=== PATIENT | female | born 1990 | race Caucasian/White ===

== ENCOUNTER 2017-09-12 14:20 | Emergency (ER) | payer BC, MEDICAID ==
[2017-09-12 14:40] VITALS: BP 118/81
--- NOTE | 2017-09-12 14:46 | EDM.PDOC ---
ED HPI GENERAL MEDICAL PROBLEM - General Chief Complaint: Skin Complaint Stated Complaint: RED BLANCHE ON ABD POSSIBLE BITE OR BURN Time Seen by Provider: 09/12/17 14:26 Source of Information: Reports: Patient History Limitations: Reports: No Limitations - History of Present Illness INITIAL COMMENTS - FREE TEXT/NARRATIVE: This is a 27-year-old female. She awoke this morning and noted that she's got this red spot on the abdomen in the right lower area just below her umbilicus. It was somewhat painful and red and she put a marker around that red spot and the redness has gone beyond that marker now she comes to the ER for evaluation. She says she doesn't know if the bite orifice just a scratch. She didn't notice it last night and just noticed it this morning because it began to hurt. She's had no fever no chills she denies any other acute symptoms. - Related Data Allergies Allergy/AdvReac Type Severity Reaction Status Date / Time No Known Allergies Allergy Verified 09/12/17 14:40 Home Meds: Home Meds Cephalexin [Keflex] 500 mg PO Q8H #21 cap 09/12/17 [Rx] Past Medical History Gastrointestinal History: Reports: GI Bleed Psychiatric History: Reports: Anxiety - Infectious Disease History Infectious Disease History: Reports: Chicken Pox - Past Surgical History Female Surgical History: Reports: Section Social & Family History - Family History Family Medical History: Noncontributory - Tobacco Use Smoking Status *Q: Never Smoker - Caffeine Use Caffeine Use: Reports: Coffee, Soda - Alcohol Use Days Per Week of Alcohol Use: 0 - Recreational Drug Use Recreational Drug Use: No ED ROS GENERAL - Review of Systems Review Of Systems: See Below Constitutional: Denies: Fever, Chills HEENT: Reports: No Symptoms Respiratory: Reports: No Symptoms Cardiovascular: Reports: No Symptoms Endocrine: Reports: No Symptoms GI/Abdominal: Reports: Other (As per history of present illness) : Reports: No Symptoms Musculoskeletal: Reports: No Symptoms Skin: Reports: Other (As per history of present illness) Neurological: Reports: No Symptoms Psychiatric: Reports: No Symptoms Hematologic/Lymphatic: Reports: No Symptoms ED EXAM, SKIN/RASH Exam: See Below Exam Limited By: No Limitations General Appearance: Alert, WD/WN, No Apparent Distress Eye Exam: Bilateral Eye: Normal Inspection Ears: Normal External Exam Nose: Normal Inspection Throat/Mouth: Normal Inspection, Normal Lips, Normal Voice, No Airway Compromise Head: Normocephalic Neck: Supple Respiratory/Chest: No Respiratory Distress GI/Abdominal: Soft, Other (In the right lower abdomen just below the umbilicus to the right side there is a small inflammation of the skin may be a small abrasion or possibly an ingrown hair that has some cellulitis now it's approximately 2 cm in size and it did grow out side the black line that she put , there is mild induration and there is tenderness on palpation but there does not appear to be any foreign body in that infected region.). No: Guarding, Rigid, Rebound Back Exam: Full Range of Motion Extremities: Normal Inspection, Normal Range of Motion Neurological: Alert, Oriented Psychiatric: Normal Affect, Normal Mood Skin: Other (As above under the abdomen) Associated features: Warmth, Tenderness, Induration, Inflammation. No: Weeping Course - Vital Signs Last Recorded V/S: Last Vital Signs Temp 97 F 09/12/17 14:31 Pulse 100 09/12/17 14:31 Resp 18 09/12/17 14:31 BP 118/81 09/12/17 14:31 Pulse Ox 100 09/12/17 14:31 - Re-Assessments/Exams Free Text/Narrative Re-Assessment/Exam: 09/12/17 14:44 I indicated to the patient that this was an infection that we needed to treat and that I cannot tell whether it's an insect bite versus just an abrasion that might have caused the infection to start. Departure - Departure Time of Disposition: 14:44 Disposition: Home, Self-Care 01 Condition: Good Clinical Impression: Cellulitis of skin, Cellulitis of right abdominal wall - Discharge Information Prescriptions: Cephalexin [Keflex] 500 mg PO Q8H #21 cap Referrals: Katelyn Mccarthy, CAR SALES ASSOCIATE [Primary Care Provider] - Additional Instructions: Keep the area clean and dry, when you get in the shower wash that area very thoroughly, take the antibiotics faithfully until they're finished and realized that the antibiotics will start working in about 24 hours so it might get a little more red and sore before he starts getting better, if you develop a fever greater than 101 follow up with your family doctor or return to the ER, follow up with the family doctor later this week just for recheck
== END 2017-09-12 15:02 | disposition home or self-care (01) ==
LOC: JD.ED 14:20
DX: L03.311 Cellulitis of abdominal wall (principal)
CPT/HCPCS: 99283

== ENCOUNTER 2017-10-11 15:00 | Emergency (ER) | payer MEDICAID ==
[2017-10-11 15:11] VITALS: BP 108/69
[2017-10-11] MEDS ORDERED: Lidocaine 1% 50 ML MDV INJECT ONE (15:20)
[2017-10-11] MEDS ORDERED: Diphtheria,Pertussis(Acell),Tetanus Vaccine 0.5 ML SDV IM ONE (15:42)
--- NOTE | 2017-10-11 15:46 | EDM.PDOC ---
ED HPI GENERAL MEDICAL PROBLEM - General Chief Complaint: Upper Extremity Injury/Pain Stated Complaint: LEFT PINKY LAC Time Seen by Provider: 10/11/17 15:20 Source of Information: Reports: Patient History Limitations: Reports: No Limitations - History of Present Illness INITIAL COMMENTS - FREE TEXT/NARRATIVE: Patient is a 27-year-old female who presents ED, the laceration to the left fifth finger middle phalanx. She was cleaning a powder blender and accidentally cut it on the sharp blades. Bleeding controlled. Minimal pain present. No sensory/ motor deficits. Tetanus status is not up-to-date. She offers no additional plans. Left Hand Pain Score (Numeric/FACES): 6 - Related Data Allergies Allergy/AdvReac Type Severity Reaction Status Date / Time No Known Allergies Allergy Verified 10/11/17 15:06 Home Meds: Home Meds buPROPion [buPROPion XL] 300 mg PO DAILY 10/11/17 [History] metFORMIN [Glucophage] 500 mg PO DAILY 10/11/17 [History] Past Medical History - Past Health History Medical/Surgical History: Denies Medical/Surgical History Gastrointestinal History: Reports: GI Bleed Psychiatric History: Reports: Anxiety, Depression - Infectious Disease History Infectious Disease History: Reports: Chicken Pox - Past Surgical History Female Surgical History: Reports: Section Social & Family History - Family History Family Medical History: Noncontributory - Tobacco Use Smoking Status *Q: Never Smoker Second Hand Smoke Exposure: No - Caffeine Use Caffeine Use: Reports: Coffee, Soda - Alcohol Use Days Per Week of Alcohol Use: 0 - Recreational Drug Use Recreational Drug Use: No Review of Systems - Review of Systems Review Of Systems: ROS reveals no pertinent complaints other than HPI. ED EXAM, GENERAL - Physical Exam Exam: See Below Exam Limited By: No Limitations General Appearance: Alert, WD/WN, No Apparent Distress Eye Exam: Bilateral Eye: PERRL Ears: Hearing Grossly Normal Nose: Normal Inspection Throat/Mouth: Normal Voice, No Airway Compromise Head: Atraumatic, Normocephalic Neck: Normal Inspection, Supple Respiratory/Chest: No Respiratory Distress, Lungs Clear, Normal Breath Sounds, No Accessory Muscle Use, Chest Non-Tender Cardiovascular: Normal Peripheral Pulses, Regular Rate, Rhythm Peripheral Pulses: 3+: Radial (R) Extremities: Other (1.5 cm laceration to the left fifth finger proximal phalanx with no tendon involvement. He has no sensory/motor deficits present. When control.) Neurological: Alert, Oriented, Normal Cognition, No Motor/Sensory Deficits Psychiatric: Normal Affect, Normal Mood Skin Exam: Warm, Dry, Normal Color ED TRAUMA EXTREMITY PROCEDURES - Laceration/Wound Repair Left Distal Finger Lac/Wound Length In cm: 1.5 Appearance: Subcutaneous, Clean Distal NVT: Neuro & Vascular Intact, No Tendon Injury Anesthetic Type: Local Local Anesthesia - Lidocaine (Xylocaine): 1% Plain (7cc) Skin Prep: Chlorhexidine (Hibiciens), Other (sterile water) Exploration/Debridement/Repair: No Foreign Material Found Closed With: Sutures Suture Size: 4-0 # of Sutures: 4 Suture Type: Interrupted, Simple, Other (Vicryl) Drain Placement: No Sterile Dressing Applied: Nurse Tetanus Status Addressed: Yes Complications: No Course - Vital Signs Last Recorded V/S: Last Vital Signs Temp 96.4 F 10/11/17 15:08 Pulse 104 H 10/11/17 15:08 Resp 15 10/11/17 15:08 BP 108/69 10/11/17 15:08 Pulse Ox 99 10/11/17 15:08 - Orders/Labs/Meds Orders: Active Orders 24 hr Category Date Time Status Vaccines to be Administered [RC] PER UNIT ROUTINE Care 10/11/17 15:42 Active Meds: Medications Discontinued Medications Generic Name Dose Route Start Last Admin Trade Name Freq PRN Reason Stop Dose Admin Diphtheria/Tetanus/Acell Pertussis 0.5 ml 10/11/17 15:42 10/11/17 15:59 Adacel IM 10/11/17 15:43 0.5 ml .ONCE ONE Administration Lidocaine HCl 30 ml 10/11/17 15:20 10/11/17 15:23 Xylocaine 1% INJECT 10/11/17 15:21 30 ml ONETIME ONE Administration - Re-Assessments/Exams Free Text/Narrative Re-Assessment/Exam: Laceration closed by Tanya Hollis PA-C. There were no complications. Discharge instructions as documented. Departure - Departure Time of Disposition: 15:45 Disposition: Home, Self-Care 01 Condition: Good Clinical Impression: Finger laceration Qualifiers: Encounter type: initial encounter Finger: little finger Damage to nail status: without damage Foreign body presence: without foreign body Laterality: left Qualified Code(s): S61.217A - Laceration without foreign body of left little finger without damage to nail, initial encounter - Discharge Information Instructions: Laceration Care, Adult, [id number] Referrals: Katelyn Mccarthy, RIDES SUPERVISOR [Primary Care Provider] - Forms: ED Department Discharge Additional Instructions: Cleanse site twice daily with soap and water, pat dry, reapply triple antibiotic ointment, and dressing. Keep area clean and dry. Do not soak wound. Sutures come out in 7-10 days. Follow-up with a provider at [facility] in [place] to do so. Return to ED if you develop any new or worsening symptoms. - My Orders Last 24 Hours: My Active Orders 10/11/17 15:42 Vaccines to be Administered [RC] PER UNIT ROUTINE - Assessment/Plan Last 24 Hours: My Active Orders 10/11/17 15:42 Vaccines to be Administered [RC] PER UNIT ROUTINE
== END 2017-10-11 16:40 | disposition home or self-care (01) ==
LOC: JD.ED 15:00
DX: S61.217A Laceration without foreign body of left little finger without damage to nail, initial encounter (principal); F32.9 Major depressive disorder, single episode, unspecified; Z23 Encounter for immunization; Z79.84 Long term (current) use of oral hypoglycemic drugs; W29.0XXA Contact with powered kitchen appliance, initial encounter
CPT/HCPCS: 12001; 90471; 90715; 99282-25; 99283-25

== ENCOUNTER 2017-10-24 11:54 | Emergency (ER) | payer MEDICAID ==
[2017-10-24 12:02] VITALS: BP 116/79
--- NOTE | 2017-10-24 13:20 | EDM.PDOC ---
ED HPI GENERAL MEDICAL PROBLEM - General Chief Complaint: Abdominal Pain Stated Complaint: WORMS IN STOOLS Time Seen by Provider: 10/24/17 12:03 Source of Information: Reports: Patient - History of Present Illness INITIAL COMMENTS - FREE TEXT/NARRATIVE: Patient is concerned about "worms" States their little puppy has worms, has seen them and what looks like eggs in the dog poop. Yesterday she saw what looked very much like a somewhat long worm in the toilet after defecating. occassional mild abd discomfort, nothing severe, no pain at present, has had somewhat poor appetite, abnormal stools at times for the past week or so. Middle Abdomen Pain Score (Numeric/FACES): 7 - Related Data Allergies Allergy/AdvReac Type Severity Reaction Status Date / Time No Known Allergies Allergy Verified 10/11/17 15:06 Home Meds: Home Meds buPROPion [buPROPion XL] 300 mg PO DAILY 10/11/17 [History] metFORMIN [Glucophage] 500 mg PO DAILY 10/11/17 [History] Past Medical History - Past Health History Medical/Surgical History: Denies Medical/Surgical History Gastrointestinal History: Reports: GI Bleed Psychiatric History: Reports: Anxiety, Depression - Infectious Disease History Infectious Disease History: Reports: Chicken Pox - Past Surgical History Female Surgical History: Reports: Section Social & Family History - Family History Family Medical History: Noncontributory - Tobacco Use Smoking Status *Q: Never Smoker Second Hand Smoke Exposure: No - Caffeine Use Caffeine Use: Reports: Coffee, Tea - Alcohol Use Days Per Week of Alcohol Use: 0 - Recreational Drug Use Recreational Drug Use: No ED ROS GENERAL - Review of Systems Review Of Systems: See Below Constitutional: Denies: Fever, Chills HEENT: Denies: Throat Pain Respiratory: Denies: Shortness of Breath, Wheezing, Pleuritic Chest Pain Cardiovascular: Denies: Chest Pain GI/Abdominal: Reports: Abdominal Pain (occasional) ED EXAM, GI/ABD - Physical Exam Exam: See Below General Appearance: Alert, No Apparent Distress Throat/Mouth: Normal Inspection Neck: Supple Respiratory/Chest: No Respiratory Distress, Lungs Clear, Normal Breath Sounds Cardiovascular: Regular Rate, Rhythm GI/Abdominal Exam: Soft. No: Guarding Extremities: Normal Inspection, Normal Range of Motion Neurological: Alert Skin Exam: Warm, Dry, Normal Color Course - Vital Signs Last Recorded V/S: Last Vital Signs Temp 96.9 F 10/24/17 12:00 Pulse 99 10/24/17 12:00 Resp 20 10/24/17 12:00 BP 116/79 10/24/17 12:00 Pulse Ox 100 10/24/17 12:00 Departure - Departure Time of Disposition: 13:16 Disposition: Home, Self-Care 01 Condition: Fair Clinical Impression: Tapeworm infection - Discharge Information Instructions: Tapeworm Infection Referrals: Katelyn Mccarthy PORTFOLIO ASSISTANT [Primary Care Provider] - Forms: ED Department Discharge Additional Instructions: abendazole 400 mg now and than repeat that in 2 weeks. Follow up clinic as needed, get dogs treated as planned.
== END 2017-10-24 13:28 | disposition home or self-care (01) ==
LOC: JD.ED 11:54
DX: B71.9 Cestode infection, unspecified (principal); F32.9 Major depressive disorder, single episode, unspecified; Z79.84 Long term (current) use of oral hypoglycemic drugs; Z79.899 Other long term (current) drug therapy
CPT/HCPCS: 99283

== ENCOUNTER 2018-04-08 18:08 | Emergency (ER) | payer MEDICAID ==
[2018-04-08 18:23] VITALS: BP 130/83
[2018-04-08] MEDS ORDERED: Magnesium Citrate Solution 296 ML Bottle PO ONE (20:00)
[2018-04-08] MEDS ORDERED: Ondansetron 4 MG Tab.DIS PO ONE (20:13)
--- NOTE | 2018-04-08 20:15 | EDM.PDOC ---
ED HPI GENERAL MEDICAL PROBLEM - General Chief Complaint: Abdominal Pain Stated Complaint: 8 WEEKS AND BLEEDING Time Seen by Provider: 04/08/18 18:47 Source of Information: Reports: Patient History Limitations: Reports: No Limitations - History of Present Illness INITIAL COMMENTS - FREE TEXT/NARRATIVE: 27 y/o F who is currently 8 weeks presents with constipation and bleeding from the rectum x 1 week. However, upon further questioning she did say she was able to have small and hard stools come out with fleet enema yesterday. She has a chronic history of GI issues and has had 3 past colonoscopies (she's unsure of what her previous diagnosis was, but states 3 different doctors told her different things such as IBS, Diverticulitis, Hemorrhoids). She states the last time she bled like this was over 1 year ago. Also, because she is she was worried this could possibly be a miscarriage, she has had one in the past and states she had similar symptoms. She has been eating fruits and veggies as well as taking OTC medications for constipation including Miralax, Colace, Fleet enemas and suppositories. She also has been pushing hard "to the point of sweating and crying" and trying to manually disimpact- she was able to get some "clumps" out as well as some " brown liquid". She is able to pass gas. She also complains of some chills, nausea and decreased appetite. She vomited 4 days ago. Currently no fever, vomiting or diarrhea. No other GI/ complaints. 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: Reports: Other (See Below) Other ASSISTANT ART DIRECTOR History: miscarriage Psychiatric History: Reports: Anxiety, Depression - Infectious Disease History Infectious Disease History: Reports: Chicken Pox - Past Surgical History GI Surgical History: Reports: Colonoscopy Female Surgical History: Reports: Section, Other (See Below) Other Female Surgeries/Procedures: cyst left ovary Social & Family History - Family History Family Medical History: Noncontributory - Tobacco Use Smoking Status *Q: Never Smoker - Caffeine Use Caffeine Use: Reports: Soda - Recreational Drug Use Recreational Drug Use: No ED ROS GENERAL - Review of Systems Review Of Systems: See Below Constitutional: Reports: Chills, Decreased Appetite (feels "full"). Denies: Fever HEENT: Reports: No Symptoms Respiratory: Reports: No Symptoms Cardiovascular: Reports: No Symptoms Endocrine: Reports: No Symptoms GI/Abdominal: Reports: Abdominal Pain, Bloody Stool, Constipation, Flatus, Nausea. Denies: Diarrhea, Vomiting : Reports: No Symptoms Musculoskeletal: Reports: No Symptoms Skin: Reports: No Symptoms Neurological: Reports: No Symptoms Psychiatric: Reports: Anxiety ED EXAM, GI/ABD - Physical Exam Exam: See Below Exam Limited By: No Limitations General Appearance: Alert, WD/WN, Anxious Eyes: Bilateral: Normal Appearance, EOMI Ears: Normal External Exam, Hearing Grossly Normal Throat/Mouth: Normal Inspection, Normal Lips, Normal Teeth, Normal Gums, Normal Oropharynx, Normal Voice, No Airway Compromise Head: Atraumatic, Normocephalic Neck: Normal Inspection, Supple, Non-Tender, Full Range of Motion Respiratory/Chest: No Respiratory Distress, Lungs Clear, Normal Breath Sounds, No Accessory Muscle Use, Chest Non-Tender Cardiovascular: Normal Peripheral Pulses, Regular Rate, Rhythm, No Edema, No Gallop, No JVD, No Murmur, No Rub GI/Abdominal Exam: Soft, Non-Tender, No Organomegaly, No Distention, No Mass, Pelvis Stable, Abnormal Bowel Sounds (hypoactive) (Female) Exam: Normal External Exam. No: Vaginal Bleeding Rectal (Female) Exam: Normal Rectal Tone, Heme + Stool, Tenderness, Other (no active bleeding at time of exam). No: Hemorrhoids Back Exam: Normal Inspection, Full Range of Motion, NT Extremities: Normal Inspection, Normal Range of Motion, Non-Tender, Normal Capillary Refill, No Pedal Edema Psychiatric: Normal Affect, Anxious Skin Exam: Warm, Dry, Intact, Normal Color, No Rash Course - Vital Signs Last Recorded V/S: Last Vital Signs Temp 97.8 F 04/08/18 18:22 Pulse 110 H 04/08/18 18:22 Resp 20 04/08/18 18:22 BP 130/83 04/08/18 18:22 Pulse Ox 100 04/08/18 18:22 - Orders/Labs/Meds Orders: Active Orders 24 hr Category Date Time Status Hemoccult [Fecal Occult Blood Collection] [RC] Care 04/08/18 20:03 Active ASDIRECTED HCG QUALITATIVE,URINE [URCHEM] Stat Lab 04/08/18 19:21 Ordered Labs: Laboratory Tests 04/08/18 Range/Units 19:21 Urine HCG, Qual Positive (NEGATIVE) Meds: Medications Discontinued Medications Generic Name Dose Route Start Last Admin Trade Name Oma PRN Reason Stop Dose Admin Magnesium Citrate 200 ml 04/08/18 20:00 04/08/18 20:12 Citrate Of Magnesia PO 04/08/18 20:01 200 ml ONETIME ONE Administration Ondansetron HCl 4 mg 04/08/18 20:13 04/08/18 20:21 Zofran Odt PO 04/08/18 20:14 4 mg ONETIME ONE Administration - Radiology Interpretation Free Text/Narrative:: Hemoccult postive Offered Abdominal Xray to rule out obstruction, however because of her it is offered with caution. She would like to wait at this time and follow up with her OBGYN Dr. Bender before deciding to have imaging done during . Departure - Departure Time of Disposition: 20:12 Disposition: Home, Self-Care 01 Condition: Fair Clinical Impression: test positive, Constipation during in first trimester - Discharge Information *PRESCRIPTION DRUG MONITORING PROGRAM REVIEWED*: Not Applicable *COPY OF PRESCRIPTION DRUG MONITORING REPORT IN PATIENT JAYLIN: Not Applicable Instructions: Constipation, Adult, [id number], Nausea and Vomiting, Adult, [id number], Abdominal Pain, Adult, [id number] Referrals: Rachel Bender MD [Primary Care Provider] - Forms: ED Department Discharge Additional Instructions: You were seen in the ED today for constipation and bleeding during 1st trimester. Your HCG test confirmed you are still . There was no active bleeding while here, but your stool did test positive for blood, most likely due to the trauma of constipation/pushing. There was no evidence of vaginal bleeding here. You were given Magnesium Citrate. Take 1/2 bottle tonight and 1/2 bottle in the AM. Also recommend high fiber diet of fruits, veggies, prune juice. Continue over the counter stool softeners and Miralax. Drink plenty of water. Follow up with your OBGYN Dr. Bender at your appointment on the for further evaluation and treatment. Please return to ED if worsening of symptoms or cramping/vaginal bleeding. - My Orders Last 24 Hours: My Active Orders 04/08/18 19:21 HCG QUALITATIVE,URINE [URCHEM] Stat 04/08/18 20:03 Hemoccult [Fecal Occult Blood Collection] [RC] ASDIRECTED - Assessment/Plan Last 24 Hours: My Active Orders 04/08/18 19:21 HCG QUALITATIVE,URINE [URCHEM] Stat 04/08/18 20:03 Hemoccult [Fecal Occult Blood Collection] [RC] ASDIRECTED
== END 2018-04-08 20:45 | disposition home or self-care (01) ==
LOC: JD.ED 18:08
DX: O99.611 Diseases of the digestive system complicating pregnancy, first trimester (principal); K59.00 Constipation, unspecified; Z3A.08 8 weeks gestation of pregnancy
CPT/HCPCS: 81025; 82270; 99283; A9270

== ENCOUNTER 2018-11-07 05:20 | Inpatient (IN) | payer MEDICAID ==
[~2018-11-07 05:20] MED LIST: Citric Acid/Sodium Citrate Solution 30 ML Cup PO ONE; Metoclopramide 10 MG/2 ML SDV IVPUSH ONE; Sodium Chloride 0.9% 10 ML Syringe FLUSH PRN
[2018-11-07] MEDS ORDERED: Lactated Ringers 2,000 ML ONE (06:12)
[2018-11-07] MEDS ORDERED: Ondansetron 4 MG/2 ML SDV ONE (06:12)
[2018-11-07] MEDS ORDERED: Ketorolac 30 MG/ML SDV ONE (06:12)
[2018-11-07] MEDS ORDERED: Oxytocin 10 Units/1 ML SDV ONE (06:12)
[2018-11-07] MEDS ORDERED: ceFAZolin 1 GM Vial ONE ×2 (06:12→06:13)
[2018-11-07] MEDS ORDERED: Morphine PF 1 MG/ML Amp ONE (06:12)
[2018-11-07] MEDS: Lactated Ringers 1,000 ML IV SCH ×2 (06:15→07:19)
--- NOTE | 2018-11-07 06:37 | PCM.PREANE ---
Preanesthetic Assessment - Procedure Proposed Procedure: repeat c section - Anesthesia/Transfusion/Family Hx Anesthesia History: Prior Anesthesia Without Reaction Family History of Anesthesia Reaction: No Transfusion History: No Prior Transfusion(s) - Review of Systems General: No Symptoms Pulmonary: No Symptoms, Other (sinus infection) Cardiovascular: No Symptoms Gastrointestinal: No Symptoms, Nausea (today) Neurological: No Symptoms Other: Reports: Diabetes (pre), Depression (history), Anxiety - Physical Assessment NPO Status Date: 11/06/18 NPO Status Time: 23:19 O2 Sat by Pulse Oximetry: 98 Respiratory Rate: 18 Vital Signs: Last Vital Signs Temp 97 F 11/07/18 01:31 Pulse 117 H 11/07/18 01:31 Resp 18 11/07/18 01:31 BP 106/77 11/07/18 01:31 Pulse Ox 98 11/07/18 01:31 Height: 5 ft 8 in Weight: 122.561 kg ASA Class: 2 Mental Status: Alert & Oriented x3 Airway Class: Mallampati = 1 Dentition: Reports: Normal Dentition Thyro-Mental Finger Breadths: 3 Mouth Opening Finger Breadths: 3 ROM/Head Extension: Full Lungs: Clear to Auscultation, Normal Respiratory Effort Cardiovascular: Regular Rate, Regular Rhythm - Lab Values: Laboratory Last Values WBC 9.72 K/mm3 (3.98-10.04) 11/07/18 06:20 RBC 4.27 M/mm3 (3.98-5.22) 11/07/18 06:20 Hgb 12.9 gm/L (11.2-15.7) 11/07/18 06:20 Hct 38.0 % (34.1-44.9) 11/07/18 06:20 MCV 89.0 fl (79.4-94.8) 11/07/18 06:20 MCH 30.2 pg (25.6-32.2) 11/07/18 06:20 MCHC 33.9 g/dl (32.2-35.5) 11/07/18 06:20 RDW Std Deviation 43.0 fL (36.4-46.3) 11/07/18 06:20 Plt Count 145 K/mm3 (182-369) L 11/07/18 06:20 MPV 9.9 fl (9.4-12.3) 11/07/18 06:20 Neut % (Auto) 76.2 % (34.0-71.1) H 11/07/18 06:20 Lymph % (Auto) 16.5 % (19.3-51.7) L 11/07/18 06:20 [place] % (Auto) 5.8 % (4.7-12.5) 11/07/18 06:20 Eos % (Auto) 1.2 (0.7-5.8) 11/07/18 06:20 Baso % (Auto) 0.1 % (0.1-1.2) 11/07/18 06:20 Neut # (Auto) 7.41 K/mm3 (1.56-6.13) H 11/07/18 06:20 Lymph # (Auto) 1.60 K/mm3 (1.18-3.74) 11/07/18 06:20 [place] # (Auto) 0.56 K/mm3 (0.24-0.36) H 11/07/18 06:20 Eos # (Auto) 0.12 K/mm3 (0.04-0.36) 11/07/18 06:20 Baso # (Auto) 0.01 K/mm3 (0.01-0.08) 11/07/18 06:20 - Allergies Allergies/Adverse Reactions: Allergies Allergy/AdvReac Type Severity Reaction Status Date / Time adhesive tape Allergy Rash Verified 11/07/18 05:35 - Blood Blood Available: No - Acknowledgements Anesthesia Type Planned: Spinal Pt an Appropriate Candidate for the Planned Anesthesia: Yes Alternatives and Risks of Anesthesia Discussed w Pt/Guardian: Yes Pt/Guardian Understands and Agrees with Anesthesia Plan: Yes PreAnesthesia Questionnaire - Past Health History Medical/Surgical History: Denies Medical/Surgical History Cardiovascular History: Reports: Other (See Below) Other Cardiovascular History: tachycardic when sick Respiratory History: Reports: None Gastrointestinal History: Reports: Diverticulosis, GERD (with preg), GI Bleed ( Gaby-Carter tear) FRONT OFFICE MEDICAL ASSISTANT History: Reports: , Spontaneous (x 1), Other (See Below ) (Left ovarian cyst) Other OB/BYN History: miscarriage Musculoskeletal History: Reports: Other (See Below) (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) Psychiatric History: Reports: Anxiety, Depression, Other (See Below) (Irritable bowel syndrome) Endocrine/Metabolic History: Reports: Obesity/BMI 30+ - Infectious Disease History Infectious Disease History: Reports: Chicken Pox - Past Surgical History HEENT Surgical History: Reports: Oral Surgery (wisdom teeth extraction) GI Surgical History: Reports: Colonoscopy (x 3) Female Surgical History: Reports: Section (x 1) - History Comment History Comment: tylenol prn, vits - SUBSTANCE USE Smoking Status *Q: Never Smoker Tobacco Use Within Last Twelve Months: No Second Hand Smoke Exposure: No Days Per Week of Alcohol Use: 0 Recreational Drug Use History: No - HOME MEDS Home Medications: Home Meds Ondansetron HCl [Ondansetron] 4 mg PO Q6H PRN 09/16/18 [History] - CURRENT (IN HOUSE) MEDS Current Meds: Current Medications Lactated Ringer's (Ringers, Lactated) 1,000 mls @ 125 mls/hr IV ASDIRECTED SERGIO Sodium Chloride (Saline Flush) 10 ml FLUSH ASDIRECTED PRN PRN Reason: Keep Vein Open Discontinued Medications Cefazolin Sodium (Ancef) Confirm Administered Dose 2 gm .ROUTE .STK-MED ONE Stop: 11/07/18 06:13 Cefazolin Sodium (Ancef) Confirm Administered Dose 1 gm .ROUTE .STK-MED ONE Stop: 11/07/18 06:14 Citric Acid/Sodium Citrate (Bicitra Solution) 30 ml PO ONETIME ONE Stop: 11/07/18 01:31 Cefazolin Sodium/Dextrose 3 gm (/ Premix) 75 mls @ 100 mls/hr IV ONETIME ONE Stop: 11/07/18 01:59 Lactated Ringer's (Ringers, Lactated) Confirm Administered Dose 2,000 mls @ as directed .ROUTE .STK-MED ONE Stop: 11/07/18 06:13 Ketorolac Tromethamine (Toradol) Confirm Administered Dose 30 mg .ROUTE .STK- MED ONE Stop: 11/07/18 06:13 Metoclopramide HCl (Reglan) 10 mg IVPUSH ONETIME ONE Stop: 11/07/18 01:31 Morphine Sulfate (Duramorph Pf) Confirm Administered Dose 1 mg .ROUTE .STK-MED ONE Stop: 11/07/18 06:13 Ondansetron HCl (Zofran) Confirm Administered Dose 4 mg .ROUTE .STK-MED ONE Stop: 11/07/18 06:13 Oxytocin (Pitocin) Confirm Administered Dose 10 unit .ROUTE .STK-MED ONE Stop: 11/07/18 06:13
[2018-11-07] MEDS ORDERED: Bupivacaine 0.5% 30 ML SDV ONE (07:04)
[2018-11-07] MEDS ORDERED: ePHEDrine/Normal Saline 25 MG/5 ML Syringe ONE (08:07)
[2018-11-07] MEDS ORDERED: diphenhydrAMINE 50 MG/ML SDV IVPUSH PRN ×2 (08:10→10:12)
[2018-11-07] MEDS ORDERED: Ondansetron 4 MG/2 ML SDV IVPUSH PRN (08:10)
[2018-11-07] MEDS ORDERED: fentaNYL 100 MCG/2 ML SDV IVPUSH PRN (08:10)
[2018-11-07] MEDS ORDERED: Phenylephrine/Normal Saline 100 MCG/ML 10 ML Syringe ONE (08:19)
[2018-11-07] MEDS ORDERED: fentaNYL 100 MCG/2 ML SDV ONE (08:34)
--- NOTE | 2018-11-07 09:04 | PCM.POSTAN ---
POST ANESTHESIA ASSESSMENT - MENTAL STATUS Mental Status: Alert, Oriented - VITAL SIGNS Pulse Rate: 97 SaO2: 100 Resp Rate: 13 Blood Pressure: 122/83 Temperature: 97.5 F - RESPIRATORY Respiratory Status: Respiratory Rate WNL, Airway Patent, O2 Saturation Stable, Supplemental Oxygen - CARDIOVASCULAR CV Status: Pulse Rate WNL, Blood Pressure Stable - GASTROINTESTINAL GI Status: No Symptoms - PAIN Pain Score: 0 - POST OP HYDRATION Hydration Status: Adequate & Stable
--- NOTE | 2018-11-07 09:20 | PCM.OPNOTE ---
- General Post-Op/Procedure Note Date of Surgery/Procedure: 11/07/18 Operative Procedure(s): Repeat section Findings: Live female infant delivered in vertex presentation at 08 21. Nuchal cord 1 reduced prior to delivery. Apgars 8 and 9. weight 3410 g (7 pounds 8.3 ounces). Overall normal-appearing uterus, tubes and ovaries. Lower uterine segment with thin uterine wall approximately 3-4 mm thick by visual examination. Pre Op Diagnosis: History of section and desires repeat at 39 weeks Post-Op Diagnosis: Same Anesthesia Technique: Spinal Primary Surgeon: Remy Donnelly Anesthesia Provider: Eyal Mccallum Gold Leaf Printer: Cindi Cruz Reason Gold Leaf Printer Was Necessary: Patient safety and reduction of morbidity and mortality Role of Gold Leaf Printer: Retraction and knowledge of the procedure for safe procedure Pathology: None Fluid Replacement, Intraop: 3,200 (Including fluids given on the floor prior to procedure) Output, Urine Amount: 200 EBL in mLs: 600 Complications: None Condition: Good Free Text/Narrative:: Intake & Output 11/06/18 11/07/18 11/07/18 22:59 06:59 14:59 Intake Total 1000 Balance 1000 Duration of procedure: 36 minutes Procedure in Detail: The patient was seen in room #4 and the risks, benefits and complications were discussed with the patient. The patient desired to proceed with section and appropriate consents were reviewed. The patient was taken to operating room #1. A Time Out was held and the patient was identified using 2 identifiers and the procedure was confirmed. The patient was given spinal anesthesia and was placed in dorsal supine position with leftward tilt. She was given 3 g Ancef IV for antibiotic prophylaxis. The patient was prepped and draped in the usual sterile manner with the use of the Traxi panniculus retractor. The abdominal skin was tested and the spinal anesthesia was found to be adequate. The skin was injected with 0.5% marcaine for local anesthesia. A Pfannenstiel skin incision was made and carried down through the subcutaneous tissue to the fascia with the scapel. The fascia was nicked in the midline using a scalpel and the fascial incision was extended transversely with White scissors. The superior aspect of the fascia was grasped with Court clamps and tented upwards. The fascia was from the underlying rectus muscle bluntly. Attention was then turned to the inferior aspect of the fascia and was grasped using Court clamps and tented upwards. The underlying rectus muscle was dissected off bluntly. The peritoneum was identified and entered bluntly. The utero-vesical peritoneal reflection was identified and the peritoneum was incised with [place] scissors and transversely extended. The bladder blade was inserted and the lower uterine segment was identified. The lower uterine segment was noted to be somewhat thin measuring approximately 3-4 mm in thickness by visual inspection. A low transverse uterine incision was made sharply with a scalpel and extended laterally bluntly. The 's head was brought to the uterine incision, the bladder blade was removed and the was delivered atraumatically. On 11/07/2018 a live female was delivered in vertex position at 0821, wt of 3410 grams, 7 pounds and 8.3 ounces. There was a nuchal cord 1 that was reduced prior to delivery. APGARS were 8 & 9. The nose and mouth were suctioned with bulb suction, the cord was doubly clamped and cut and infant was transferred to the awaiting nurse. The placenta was removed intact and appeared normal with a three vessel cord. The uterus was exteriorized and the uterine cavity was cleaned using lap sponges. The hysterotomy was closed with a running locked suture of 0-Vicryl. During the initial hysterotomy repair there were 2 areas to the right of midline that had some tearing through the myometrium and were repaired using additional locked sutures of the 0 Vicryl suture. A second suture of 0-Vicryl was used to imbricate the hysterotomy in a horizontal fashion. The hysterotomy was had one area approximately 3 cm from the right apex of the hysterotomy that had some bleeding and a [id number] suture with 0 Vicryl was placed in this area and hemostasis was assured. There was another area of bleeding approximately 2 cm from previous figure of 8 suture that was bleeding and another nugoys-by-avxuy suture with 0 Vicryl was placed for hemostasis. The hysterotomy was hemostatic at this time. The uterus, tubes and ovaries appeared overall normal. The uterus was then returned into the abdominal cavity. The hysterotomy was noted to remain hemostatic inside the abdominal cavity. The fascia was noted to be hemostatic and the fascia was then reapproximated with running sutures of 0-Vicryl. The skin was reapproximated using 4-0 Monocryl and Prineo dressing was applied over the incision due to her history of adhesive allergy. Instrument, sponge, and needle counts were correct prior to the abdominal closure and at the conclusion of the case.
[2018-11-07] MEDS ORDERED: Acetaminophen/oxyCODONE 325-5 MG Tab PO PRN (10:12)
[2018-11-07] MEDS ORDERED: Lactated Ringers 1,000 ML IV SCH (10:12)
[2018-11-07] MEDS ORDERED: Oxytocin/Lactated Ringers 10 UNIT/1,000 ML BAG IV SCH (10:12)
[2018-11-07] MEDS ORDERED: Magnesium Hydroxide 400 MG/5 ML Susp 30 ML Cup PO PRN (10:12)
[2018-11-07] MEDS ORDERED: Naloxone 0.4 MG/ML SDV IVPUSH PRN (10:12)
[2018-11-07] MEDS ORDERED: ePHEDrine 50 MG/ML SDV IVPUSH PRN (10:12)
[2018-11-07] MEDS ORDERED: Ondansetron 4 MG/2 ML SDV IV PRN (10:12)
[2018-11-07] MEDS ORDERED: Lanolin 100% Cream 7 GM Tube TOP PRN (10:12)
[2018-11-07] MEDS ORDERED: Lactated Ringers 1,000 ML ONE (11:48)
[2018-11-07] MEDS: Ketorolac 30 MG/ML SDV IVPUSH SCH ×2 (14:39→20:21)
[2018-11-07] MEDS: Docusate Sodium 100 MG Cap PO SCH ×2 (14:42→20:21)
[2018-11-07] MEDS: Nystatin Topical Powder 15 GM Bottle TOP SCH (18:45)
[2018-11-08] MEDS: Docusate Sodium 100 MG Cap PO SCH ×3 (01:08→20:56)
[2018-11-08] MEDS: Nystatin Topical Powder 15 GM Bottle TOP SCH ×4 (01:12→22:09)
[2018-11-08] MEDS: Ketorolac 30 MG/ML SDV IVPUSH SCH (02:30)
[2018-11-08] MEDS: Acetaminophen/oxyCODONE 325-5 MG Tab PO PRN ×3 (02:51→16:58)
--- NOTE | 2018-11-08 08:35 | PCM48HPAN ---
Post Anesthesia Note - EVALUATION WITHIN 48HRS OF ANESTHETIC Vital Signs in Normal Range: Yes Patient Participated in Evaluation: Yes Respiratory Function Stable: Yes Airway Patent: Yes Cardiovascular Function Stable: Yes Hydration Status Stable: Yes Pain Control Satisfactory: Yes Nausea and Vomiting Control Satisfactory: Yes Mental Status Recovered: Yes
--- NOTE | 2018-11-08 08:40 | PCM.SN ---
- Free Text/Narrative Note: Post Operative Progress Note POD # 1 Subjective: Doing well overall. Ambulating without difficulty. Lochia minimal. Voiding without difficulty several times since removal of catheter this morning. Feels like she has to pass flatus but has not been able to at this time. Tolerating regular diet without nausea or vomiting. Pain controlled with oral medications. Breast-feeding with minimal difficulty. Objective: Vitals: Vital Signs - 24 hr 11/07/18 11/07/18 11/07/18 08:58 09:00 09:04 Temperature 36.4 C Temperature [ 36.4 C 36.4 C Temporal] Pulse, 97 Peripheral Pulse, 97 111 H Peripheral [ Pulse Oximetry] Respiratory 13 13 13 Rate Blood Pressure 122/83 Blood Pressure 122/82 122/73 [Upper Arm] O2 Sat by Pulse 100 100 100 Oximetry O2 Sat by Pulse Oximetry [ Nasal Cannula] 11/07/18 09:15 Temperature Temperature [ 36.5 C Temporal] Pulse, Peripheral Pulse, 84 Peripheral [ Pulse Oximetry] Respiratory 11 L Rate Blood Pressure Blood Pressure 119/72 [Upper Arm] O2 Sat by Pulse 99 Oximetry O2 Sat by Pulse Oximetry [ Nasal Cannula] 11/07/18 11/07/18 11/07/18 09:30 09:45 10:43 Temperature Temperature [ 36.3 C 36.3 C Temporal] Pulse, 87 Peripheral Pulse, 84 86 Peripheral [ Pulse Oximetry] Respiratory 8 L 18 16 Rate Blood Pressure 107/68 Blood Pressure 130/81 126/73 [Upper Arm] O2 Sat by Pulse 99 100 Oximetry O2 Sat by Pulse Oximetry [ Nasal Cannula] 11/07/18 11/07/18 11/07/18 10:45 11:14 11:54 Temperature Temperature [ 36.4 C Temporal] Pulse, Peripheral Pulse, 87 85 105 H Peripheral [ Pulse Oximetry] Respiratory 16 16 18 Rate Blood Pressure Blood Pressure 107/68 99/65 106/55 L [Upper Arm] O2 Sat by Pulse 98 98 98 Oximetry O2 Sat by Pulse Oximetry [ Nasal Cannula] 11/07/18 11/07/18 11/07/18 12:58 13:01 14:00 Temperature Temperature [ 37.1 C 37.2 C Temporal] Pulse, Peripheral Pulse, 96 Peripheral [ Pulse Oximetry] Respiratory 16 16 Rate Blood Pressure Blood Pressure 92/61 100/40 L 104/63 [Upper Arm] O2 Sat by Pulse 97 97 Oximetry O2 Sat by Pulse Oximetry [ Nasal Cannula] 11/07/18 11/07/18 16:00 16:15 Temperature 36.7 C Temperature [ 36.7 C Temporal] Pulse, 91 Peripheral Pulse, 91 Peripheral [ Pulse Oximetry] Respiratory 16 16 Rate Blood Pressure 113/58 L Blood Pressure [Upper Arm] O2 Sat by Pulse 97 Oximetry O2 Sat by Pulse Oximetry [ Nasal Cannula] 11/07/18 20:04 Temperature 36.5 C Temperature [ Temporal] Pulse, Peripheral Pulse, Peripheral [ Pulse Oximetry] Respiratory 14 Rate Blood Pressure 113/60 Blood Pressure [Upper Arm] O2 Sat by Pulse Oximetry O2 Sat by Pulse Oximetry [ Nasal Cannula] 11/07/18 23:20 Temperature 36.5 C Temperature [ Temporal] Pulse, Peripheral Pulse, Peripheral [ Pulse Oximetry] Respiratory 15 Rate Blood Pressure 112/61 Blood Pressure [Upper Arm] O2 Sat by Pulse Oximetry O2 Sat by Pulse Oximetry [ Nasal Cannula] 11/08/18 11/08/18 11/08/18 02:54 03:00 04:00 Temperature 36.5 C Temperature [ Temporal] Pulse, Peripheral Pulse, Peripheral [ Pulse Oximetry] Respiratory 16 16 12 Rate Blood Pressure 109/75 Blood Pressure [Upper Arm] O2 Sat by Pulse 97 96 Oximetry O2 Sat by Pulse Oximetry [ Nasal Cannula] Physical Exam General: Alert and oriented, no acute distress Lungs: Clear to auscultation bilaterally Heart: Regular rate and rhythm Abdomen: Soft, minimal appropriate tenderness, non-distended, fundus midline, nontender and 2 finger breadths below the umbilicus Incision: Clean, dry and intact, no erythema or bleeding, small amount of serosanguineous drainage onto gauze covering the incision with Prineo dressing in place Extremities: 1+ edema in bilateral lower extremities to mid shins Labs: Laboratory Tests 11/07/18 11/07/18 11/07/18 Range/Units 06:20 06:20 06:20 WBC 9.72 (3.98-10.04) K/mm3 RBC 4.27 (3.98-5.22) M/mm3 Hgb 12.9 (11.2-15.7) gm/L Hct 38.0 (34.1-44.9) % MCV 89.0 (79.4-94.8) fl MCH 30.2 (25.6-32.2) pg MCHC 33.9 (32.2-35.5) g/dl RDW Std Deviation 43.0 (36.4-46.3) fL Plt Count 145 L (182-369) K/mm3 MPV 9.9 (9.4-12.3) fl Neut % (Auto) 76.2 H (34.0-71.1) % Lymph % (Auto) 16.5 L (19.3-51.7) % [place] % (Auto) 5.8 (4.7-12.5) % Eos % (Auto) 1.2 (0.7-5.8) Baso % (Auto) 0.1 (0.1-1.2) % Neut # (Auto) 7.41 H (1.56-6.13) K/mm3 Lymph # (Auto) 1.60 (1.18-3.74) K/mm3 [place] # (Auto) 0.56 H (0.24-0.36) K/mm3 Eos # (Auto) 0.12 (0.04-0.36) K/mm3 Baso # (Auto) 0.01 (0.01-0.08) K/mm3 RPR Non-reactive (NONREACTIVE) Blood Type O POSITIVE Gel Antibody Screen Negative 11/08/18 Range/Units 06:28 WBC 8.83 (3.98-10.04) K/mm3 RBC 3.51 L (3.98-5.22) M/mm3 Hgb 10.6 L (11.2-15.7) gm/L Hct 31.9 L (34.1-44.9) % MCV 90.9 (79.4-94.8) fl MCH 30.2 (25.6-32.2) pg MCHC 33.2 (32.2-35.5) g/dl RDW Std Deviation 44.0 (36.4-46.3) fL Plt Count 118 L (182-369) K/mm3 MPV 9.9 (9.4-12.3) fl Neut % (Auto) 79.6 H (34.0-71.1) % Lymph % (Auto) 14.4 L (19.3-51.7) % [place] % (Auto) 4.8 (4.7-12.5) % Eos % (Auto) 1.1 (0.7-5.8) Baso % (Auto) 0.0 L (0.1-1.2) % Neut # (Auto) 7.03 H (1.56-6.13) K/mm3 Lymph # (Auto) 1.27 (1.18-3.74) K/mm3 [place] # (Auto) 0.42 H (0.24-0.36) K/mm3 Eos # (Auto) 0.10 (0.04-0.36) K/mm3 Baso # (Auto) 0.00 L (0.01-0.08) K/mm3 RPR (NONREACTIVE) Blood Type Gel Antibody Screen ASSESSMENT: 28-year-old female s/p repeat section POD #1 for history of section, complicated by circular constipation in with history of irritable bowel syndrome and history of prediabetes prior to PLAN: Doing well Breast-feeding with minimal difficulty. Assist as needed Incision healing well. Continue to keep clean and dry. Lochia minimal. Continue to monitor for appropriate lochia. Continue routine post-operative care Continue Colace 100 mg twice a day for constipation and start on milk of magnesia 30 mL twice a day to help with constipation Anticipate discharge home tomorrow Remy Donnelly MD 8:37 AM 11/08/2018
[2018-11-08] MEDS: Ibuprofen 600 MG Tab PO PRN ×3 (08:44→21:58)
[2018-11-08] MEDS: Magnesium Hydroxide 400 MG/5 ML Susp 30 ML Cup PO SCH ×2 (08:47→20:56)
[2018-11-08] MEDS ORDERED: Prenatal Multivitamin with Calcium/Folic Acid/Iron Tab PO SCH (09:00)
[2018-11-08] MEDS ORDERED: Polyethylene Glycol 3350 Powder 17 GM Packet PO ONE (21:00)
[2018-11-09] MEDS: Acetaminophen/oxyCODONE 325-5 MG Tab PO PRN ×2 (00:06→09:47)
[2018-11-09] MEDS: Ibuprofen 600 MG Tab PO PRN (05:56)
--- NOTE | 2018-11-09 08:34 | PCM.SN ---
- Free Text/Narrative Note: Post Operative Progress Note POD # 2 Subjective: Doing well overall. Ambulating without difficulty. Lochia minimal. Reports that she did pass 1 larger blood clots last evening when she was straining to urinate but has had only small clots with breast-feeding since that time. Voiding without difficulty. Had a bowel movement last evening and reports that it was quite hard and that she had to strain significantly with this bowel movement. She was continued on Colace and milk of magnesia and given 2 Falls of MiraLAX last evening but has not had a bowel movement since then. She has continued to pass flatus overnight. Tolerating regular diet without nausea or vomiting. Pain controlled with oral medications. Breast-feeding with minimal difficulty. Objective: Vitals: Vital Signs - 24 hr 11/08/ 03/11/08/18 08:54 15:19 20:39 Temperature 36.8 C 36.6 C 36.4 C Pulse, 68 77 Peripheral Respiratory 16 16 12 Rate Blood Pressure 103/79 107/61 108/70 O2 Sat by Pulse 98 Oximetry 11/09/ 03:07 Temperature 36.4 C Pulse, 86 Peripheral Respiratory 15 Rate Blood Pressure 121/78 O2 Sat by Pulse 97 Oximetry Physical Exam General: Alert and oriented, no acute distress Lungs: Clear to auscultation bilaterally Heart: Regular rate and rhythm Abdomen: Soft, minimal appropriate tenderness, non-distended, fundus midline, nontender and 2 finger breadths below the umbilicus Incision: Clean, dry and intact, no erythema, bleeding or drainage from the incision with Prineo dressing in place Extremities: Trace edema in bilateral lower extremities to mid shins ASSESSMENT: 28-year-old female s/p repeat section POD #2 for history of section, complicated by circular constipation in with history of irritable bowel syndrome and history of prediabetes prior to PLAN: Doing well Breast-feeding with minimal difficulty. Assist as needed Incision healing well. Continue to keep clean and dry. Lochia minimal. Continue to monitor for appropriate lochia. Continue routine post-operative care Continue Colace 100 mg twice a day and milk of magnesia 30 mL twice a day to help with constipation. Patient reports that she did have a bowel movement last evening but had to strain quite significantly. She was given 2 capsules of MiraLAX last evening but has not had a bowel movement since. She should continue with a bowel regimen at home to help with her constipation. Discharge home today Remy Donnelly MD 8:30 AM 11/09/2018
[2018-11-09] MEDS: Docusate Sodium 100 MG Cap PO SCH (08:39)
[2018-11-09] MEDS: Magnesium Hydroxide 400 MG/5 ML Susp 30 ML Cup PO SCH (08:40)
--- NOTE | 2018-11-09 08:44 | PCM.DCSUM1 ---
Discharge Summary - Hospital Course Free Text/Narrative:: Duration of procedure: 36 minutes Procedure in Detail: The patient was seen in room #4 and the risks, benefits and complications were discussed with the patient. The patient desired to proceed with section and appropriate consents were reviewed. The patient was taken to operating room #1. A Time Out was held and the patient was identified using 2 identifiers and the procedure was confirmed. The patient was given spinal anesthesia and was placed in dorsal supine position with leftward tilt. She was given 3 g Ancef IV for antibiotic prophylaxis. The patient was prepped and draped in the usual sterile manner with the use of the Traxi panniculus retractor. The abdominal skin was tested and the spinal anesthesia was found to be adequate. The skin was injected with 0.5% marcaine for local anesthesia. A Pfannenstiel skin incision was made and carried down through the subcutaneous tissue to the fascia with the scapel. The fascia was nicked in the midline using a scalpel and the fascial incision was extended transversely with White scissors. The superior aspect of the fascia was grasped with Court clamps and tented upwards. The fascia was from the underlying rectus muscle bluntly. Attention was then turned to the inferior aspect of the fascia and was grasped using Court clamps and tented upwards. The underlying rectus muscle was dissected off bluntly. The peritoneum was identified and entered bluntly. The utero-vesical peritoneal reflection was identified and the peritoneum was incised with Metzenabaum scissors and transversely extended. The bladder blade was inserted and the lower uterine segment was identified. The lower uterine segment was noted to be somewhat thin measuring approximately 3-4 mm in thickness by visual inspection. A low transverse uterine incision was made sharply with a scalpel and extended laterally bluntly. The infant's head was brought to the uterine incision, the bladder blade was removed and the infant was delivered atraumatically. On 11/07/2018 a live female was delivered in vertex position at 0821, wt of 3410 grams, 7 pounds and 8.3 ounces. There was a nuchal cord 1 that was reduced prior to delivery. APGARS were 8 & 9. The nose and mouth were suctioned with bulb suction, the cord was doubly clamped and cut and infant was transferred to the awaiting nurse. The placenta was removed intact and appeared normal with a three vessel cord. The uterus was exteriorized and the uterine cavity was cleaned using lap sponges. The hysterotomy was closed with a running locked suture of 0-Vicryl. During the initial hysterotomy repair there were 2 areas to the right of midline that had some tearing through the myometrium and were repaired using additional locked sutures of the 0 Vicryl suture. A second suture of 0-Vicryl was used to imbricate the hysterotomy in a horizontal fashion. The hysterotomy was had one area approximately 3 cm from the right apex of the hysterotomy that had some bleeding and a izpkqh-oa-zwqfk suture with 0 Vicryl was placed in this area and hemostasis was assured. There was another area of bleeding approximately 2 cm from previous figure of 8 suture that was bleeding and another qsvsps-nk-omaxo suture with 0 Vicryl was placed for hemostasis. The hysterotomy was hemostatic at this time. The uterus, tubes and ovaries appeared overall normal. The uterus was then returned into the abdominal cavity. The hysterotomy was noted to remain hemostatic inside the abdominal cavity. The fascia was noted to be hemostatic and the fascia was then reapproximated with running sutures of 0-Vicryl. The skin was reapproximated using 4-0 Monocryl and Prineo dressing was applied over the incision due to her history of adhesive allergy. Instrument, sponge, and needle counts were correct prior to the abdominal closure and at the conclusion of the case. HPI Initial Comments: Duration of procedure: 36 minutes Procedure in Detail: The patient was seen in room #4 and the risks, benefits and complications were discussed with the patient. The patient desired to proceed with section and appropriate consents were reviewed. The patient was taken to operating room #1. A Time Out was held and the patient was identified using 2 identifiers and the procedure was confirmed. The patient was given spinal anesthesia and was placed in dorsal supine position with leftward tilt. She was given 3 g Ancef IV for antibiotic prophylaxis. The patient was prepped and draped in the usual sterile manner with the use of the Traxi panniculus retractor. The abdominal skin was tested and the spinal anesthesia was found to be adequate. The skin was injected with 0.5% marcaine for local anesthesia. A Pfannenstiel skin incision was made and carried down through the subcutaneous tissue to the fascia with the scapel. The fascia was nicked in the midline using a scalpel and the fascial incision was extended transversely with White scissors. The superior aspect of the fascia was grasped with Court clamps and tented upwards. The fascia was from the underlying rectus muscle bluntly. Attention was then turned to the inferior aspect of the fascia and was grasped using Court clamps and tented upwards. The underlying rectus muscle was dissected off bluntly. The peritoneum was identified and entered bluntly. The utero-vesical peritoneal reflection was identified and the peritoneum was incised with Metzenabaum scissors and transversely extended. The bladder blade was inserted and the lower uterine segment was identified. The lower uterine segment was noted to be somewhat thin measuring approximately 3-4 mm in thickness by visual inspection. A low transverse uterine incision was made sharply with a scalpel and extended laterally bluntly. The 's head was brought to the uterine incision, the bladder blade was removed and the infant was delivered atraumatically. On 11/07/2018 a live female was delivered in vertex position at 0821, wt of 3410 grams, 7 pounds and 8.3 ounces. There was a nuchal cord 1 that was reduced prior to delivery. APGARS were 8 & 9. The nose and mouth were suctioned with bulb suction, the cord was doubly clamped and cut and infant was transferred to the awaiting nurse. The placenta was removed intact and appeared normal with a three vessel cord. The uterus was exteriorized and the uterine cavity was cleaned using lap sponges. The hysterotomy was closed with a running locked suture of 0-Vicryl. During the initial hysterotomy repair there were 2 areas to the right of midline that had some tearing through the myometrium and were repaired using additional locked sutures of the 0 Vicryl suture. A second suture of 0-Vicryl was used to imbricate the hysterotomy in a horizontal fashion. The hysterotomy was had one area approximately 3 cm from the right apex of the hysterotomy that had some bleeding and a dagcqw-gr-vwcsa suture with 0 Vicryl was placed in this area and hemostasis was assured. There was another area of bleeding approximately 2 cm from previous figure of 8 suture that was bleeding and another ijgmtq-vp-pgfbi suture with 0 Vicryl was placed for hemostasis. The hysterotomy was hemostatic at this time. The uterus, tubes and ovaries appeared overall normal. The uterus was then returned into the abdominal cavity. The hysterotomy was noted to remain hemostatic inside the abdominal cavity. The fascia was noted to be hemostatic and the fascia was then reapproximated with running sutures of 0-Vicryl. The skin was reapproximated using 4-0 Monocryl and Prineo dressing was applied over the incision due to her history of adhesive allergy. Instrument, sponge, and needle counts were correct prior to the abdominal closure and at the conclusion of the case. Brief History: Duration of procedure: 36 minutes. Procedure in Detail: The patient was seen in room #4 and the risks, benefits and complications were discussed with the patient. The patient desired to proceed with section and appropriate consents were reviewed. The patient was taken to operating room #1. A Time Out was held and the patient was identified using 2 identifiers and the procedure was confirmed. The patient was given spinal anesthesia and was placed in dorsal supine position with leftward tilt. She was given 3 g Ancef IV for antibiotic prophylaxis. The patient was prepped and draped in the usual sterile manner with the use of the Traxi panniculus retractor. The abdominal skin was tested and the spinal anesthesia was found to be adequate. The skin was injected with 0.5% marcaine for local anesthesia. A Pfannenstiel skin incision was made and carried down through the subcutaneous tissue to the fascia with the scapel. The fascia was nicked in the midline using a scalpel and the fascial incision was extended transversely with White scissors. The superior aspect of the fascia was grasped with Court clamps and tented upwards. The fascia was from the underlying rectus muscle bluntly. Attention was then turned to the inferior aspect of the fascia and was grasped using Court clamps and tented upwards. The underlying rectus muscle was dissected off bluntly. The peritoneum was identified and entered bluntly. The utero-vesical peritoneal reflection was identified and the peritoneum was incised with Metzenabaum scissors and transversely extended. The bladder blade was inserted and the lower uterine segment was identified. The lower uterine segment was noted to be somewhat thin measuring approximately 3-4 mm in thickness by visual inspection. A low transverse uterine incision was made sharply with a scalpel and extended laterally bluntly. The infant's head was brought to the uterine incision, the bladder blade was removed and the was delivered atraumatically. On 2018 a live female was delivered in vertex position at 0821, wt of 3410 grams, 7 pounds and 8.3 ounces. There was a nuchal cord 1 that was reduced prior to delivery. APGARS were 8 & 9. The nose and mouth were suctioned with bulb suction, the cord was doubly clamped and cut and was transferred to the awaiting nurse. The placenta was removed intact and appeared normal with a three vessel cord. The uterus was exteriorized and the uterine cavity was cleaned using lap sponges. The hysterotomy was closed with a running locked suture of 0-Vicryl. During the initial hysterotomy repair there were 2 areas to the right of midline that had some tearing through the myometrium and were repaired using additional locked sutures of the 0 Vicryl suture. A second suture of 0-Vicryl was used to imbricate the hysterotomy in a horizontal fashion. The hysterotomy was had one area approximately 3 cm from the right apex of the hysterotomy that had some bleeding and a nvswrx-kr-smtab suture with 0 Vicryl was placed in this area and hemostasis was assured. There was another area of bleeding approximately 2 cm from previous figure of 8 suture that was bleeding and another cogycf-bz-ucfmo suture with 0 Vicryl was placed for hemostasis. The hysterotomy was hemostatic at this time. The uterus, tubes and ovaries appeared overall normal. The uterus was then returned into the abdominal cavity. The hysterotomy was noted to remain hemostatic inside the abdominal cavity. The fascia was noted to be hemostatic and the fascia was then reapproximated with running sutures of 0-Vicryl. The skin was reapproximated using 4-0 Monocryl and Prineo dressing was applied over the incision due to her history of adhesive allergy. Instrument, sponge, and needle counts were correct prior to the abdominal closure and at the conclusion of the case. Diagnosis: Stroke: No - Discharge Data Discharge Date: 11/09/18 Discharge Disposition: Home, Self-Care 01 Condition: Good - Discharge Diagnosis/Problem(s) (1) 39 weeks gestation of SNOMED Code(s): 78765858 ICD Code: Z3A.39 - 39 WEEKS GESTATION OF Status: Acute Current Visit: Yes (2) Status post repeat low transverse section SNOMED Code(s): 709503188, [id number], 396482316, 276254149, 944469847 ICD Code: Z98.891 - HISTORY OF UTERINE SCAR FROM PREVIOUS SURGERY Status: Acute Current Visit: Yes (3) History of delivery affecting SNOMED Code(s): 968775842, 668753125 ICD Code: O34.219 - MATERNAL CARE FOR UNSP TYPE SCAR FROM PREVIOUS DEL Status: Acute Current Visit: Yes (4) Constipation in SNOMED Code(s): 50278707 ICD Code: O99.619 - DISEASES OF THE DGSTV SYS COMP , UNSP TRIMESTER ; K59.00 - CONSTIPATION, UNSPECIFIED Status: Acute Current Visit: Yes - Patient Summary/Data Operative Procedure(s) Performed: Repeat section Complications: None Consults: None Hospital Course: Rita Hernandez was admitted for scheduled repeat section. She was taken back to the OR and given spinal injection for anesthesia. She was given 3 g of Ancef for antibiotic prophylaxis. She was prepped and draped in the normal fashion. On re-20 01/02/2019 she had a normal repeat delivery of a live female at 0821. Apgars of 8 and 9. Weight of 3410 g (7 pounds 8.3 ounces). She was closed in a normal fashion. There were no complications with the procedure. Please see the operative report for full details. Her post operative course was uneventful. Her pain was well controlled and she had minimal lochia. She was ambulating, tolerating a regular diet and voiding normally. She was passing flatus and has had a bowel movement with use of Colace and milk of magnesia. She was started on MiraLAX for severe constipation. She was breast feeding with minimal difficulty. She was afebrile and her hematocrit was 31.9 on POD #1. She desired to be discharged home on the morning of POD #2. Her blood type is O+. - Patient Instructions Diet: Regular Diet as Tolerated Activity: Apply Ice, As Tolerated, No Lifting Over 25 Pounds Activity, Other: Nothing in the vagina for 6 weeks. Driving: Do Not Drive (While taking narcotic medications or having significant or severe pain.) Showering/Bathing: May Shower (Pat the incision dry to reduce pulling on the skin.) Wound/Incision Care: Keep Operative Site/Wound Site Clean and Dry Notify Provider of: Fever, Increased Pain, Swelling and Redness, Drainage, Nausea and/or Vomiting Other/Special Instructions: Please contact your physician's office if you note any bleeding or pus coming from the abdominal incision. Please contact your physician's office if you have heavy vaginal bleeding enough to soak a pad in less than an hour for several hours. Monitor for any signs of an infection in the breasts with severe pain or redness of the breast. - Discharge Plan *PRESCRIPTION DRUG MONITORING PROGRAM REVIEWED*: Yes *COPY OF PRESCRIPTION DRUG MONITORING REPORT IN PATIENT JAYLIN: Yes Prescriptions/Med Rec: Acetaminophen/oxyCODONE [Percocet 325-5 MG] 1 - 2 tab PO Q6H PRN #30 tablet PRN Reason: Pain Home Medications: Home Meds Ondansetron HCl [Ondansetron] 4 mg PO Q6H PRN 09/16/18 [History] Acetaminophen/oxyCODONE [Percocet 325-5 MG] 1 - 2 tab PO Q6H PRN #30 tablet [Rx] Docusate Sodium [Colace] 100 mg PO Q12H cap 11/09/18 [Rx] Ibuprofen [Motrin] 600 mg PO Q6H PRN tablet 11/09/18 [Rx] Lanolin [Lansinoh HPA] 1 applic TOP ASDIRECTED PRN tube 11/09/18 [Rx] Magnesium Hydroxide [Milk of Magnesia] 30 ml PO BID cup 11/09/18 [Rx] Nystatin [Nystop] 1 applic TOP TID PRN bottle 11/09/18 [Rx] Vit with Ca/FA/Iron [ Plus Iron] 1 each PO DAILY tablet [Rx] Patient Handouts: Delivery, Care After, Home Care Instructions for Mom Referrals: Remy Donnelly MD [Physician] - (Follow-up in 2 weeks for routine postoperative appointment earlier as needed.) - Discharge Summary/Plan Comment DC Time >30 min.: No - Patient Data Vitals - Most Recent: Last Vital Signs Temp 36.4 C 11/09/18 03:07 Pulse 86 11/09/18 03:07 Resp 15 11/09/18 03:07 BP 121/78 11/09/18 03:07 Pulse Ox 97 11/09/18 03:07 Weight - Most Recent: 122.561 kg I&O - Last 24 hours: Intake & Output 11/08/18 11/09/18 11/09/18 22:59 06:59 14:59 Intake Total 360 Balance 360 Med Orders - Current: Current Medications Diphenhydramine HCl (Benadryl) 25 mg IVPUSH Q6H PRN PRN Reason: Itching or Nausea Docusate Sodium (Colace) 100 mg PO Q12H [facility] Last Admin: 11/09/18 08:39 Dose: 100 mg Emollient Ointment (Lansinoh Hpa) 0 gm TOP ASDIRECTED PRN PRN Reason: Sore Nipples Ephedrine Sulfate (Ephedrine Sulfate) 5 mg IVPUSH SEECOMMENT PRN PRN Reason: Other Oxytocin/Lactated Ringer's (Pitocin In Lr 10 Units/1,000 Ml) 10 unit in 1,000 mls @ 100 mls/hr IV .CONTINUOUS SERGIO; Protocol Ibuprofen (Motrin) 600 mg PO Q6H PRN PRN Reason: mild pain or fever Last Admin: 11/09/18 05:56 Dose: 600 mg Magnesium Hydroxide (Milk Of Magnesia) 30 ml PO BID [facility] Last Admin: 11/09/18 08:40 Dose: 30 ml Naloxone HCl (Narcan) 0.1 mg IVPUSH SEECOMMENT PRN PRN Reason: Respiratory Depression Nystatin (Nystop) 0 gm TOP TID [facility] Last Admin: 11/08/18 22:09 Dose: Not Given Ondansetron HCl (Zofran) 4 mg IV Q8H PRN PRN Reason: Nausea/Vomiting Oxycodone/Acetaminophen (Percocet 325-5 Mg) 1 tab PO Q6H PRN PRN Reason: Pain (moderate 4-6) Last Admin: 11/09/18 00:06 Dose: 1 tab Oxycodone/Acetaminophen (Percocet 325-5 Mg) 2 tab PO Q6H PRN PRN Reason: Pain (severe 7-10) Prenat Multivit/[place]/Iron/Folic Ac ( Plus Iron) 1 each PO DAILY [facility] Last Admin: 11/08/18 09:45 Dose: Not Given Discontinued Medications Bupivacaine HCl (Marcaine 0.5%) Confirm Administered Dose 30 ml .ROUTE .STK-MED ONE Stop: 11/07/18 07:05 Last Admin: 11/07/18 08:16 Dose: 20 ml Cefazolin Sodium (Ancef) Confirm Administered Dose 2 gm .ROUTE .STK-MED ONE Stop: 11/07/18 06:13 Cefazolin Sodium (Ancef) Confirm Administered Dose 1 gm .ROUTE .STK-MED ONE Stop: 11/07/18 06:14 Citric Acid/Sodium Citrate (Bicitra Solution) 30 ml PO ONETIME ONE Stop: 11/07/18 01:31 Last Admin: 11/07/18 06:44 Dose: 30 ml Diphenhydramine HCl (Benadryl) 25 mg IVPUSH Q6H PRN PRN Reason: pruritis Stop: 11/07/18 11:00 Docusate Sodium (Colace) 100 mg PO Q12H [facility] Last Admin: 11/08/18 01:08 Dose: Not Given Ephedrine Sulfate (Ephedrine In Ns) Confirm Administered Dose 25 mg .ROUTE .STK- MED ONE Stop: 11/07/18 08:08 Fentanyl (Sublimaze) 50 mcg IVPUSH Q5M PRN PRN Reason: Pain Stop: 11/07/18 11:00 Fentanyl (Sublimaze) Confirm Administered Dose 100 mcg .ROUTE .STK-MED ONE Stop: 11/07/18 08:35 Cefazolin Sodium/Dextrose 3 gm (/ Premix) 75 mls @ 100 mls/hr IV ONETIME ONE Stop: 11/07/18 01:59 Lactated Ringer's (Ringers, Lactated) 1,000 mls @ 125 mls/hr IV ASDIRECTED [facility] Last Admin: 11/07/18 07:19 Dose: 125 mls/hr Lactated Ringer's (Ringers, Lactated) Confirm Administered Dose 2,000 mls @ as directed .ROUTE .STK-MED ONE Stop: 11/07/18 06:13 Lactated Ringer's (Ringers, Lactated) 1,000 mls @ 125 mls/hr IV ASDIRECTED [facility] Stop: 11/07/18 18:11 Last Admin: 11/07/18 11:53 Dose: 125 mls/hr Lactated Ringer's (Ringers, Lactated) Confirm Administered Dose 1,000 mls @ as directed .ROUTE .STK-MED ONE Stop: 11/07/18 11:49 Last Admin: 11/07/18 14:08 Dose: Not Given Ketorolac Tromethamine (Toradol) Confirm Administered Dose 30 mg .ROUTE .STK- MED ONE Stop: 11/07/18 06:13 Ketorolac Tromethamine (Toradol) 30 mg IVPUSH Q6H [facility] Stop: 11/08/18 02:31 Last Admin: 11/08/18 02:30 Dose: 30 mg Magnesium Hydroxide (Milk Of Magnesia) 30 ml PO BID PRN PRN Reason: Constipation Metoclopramide HCl (Reglan) 10 mg IVPUSH ONETIME ONE Stop: 11/07/18 01:31 Last Admin: 11/07/18 06:44 Dose: 10 mg Morphine Sulfate (Duramorph Pf) Confirm Administered Dose 1 mg .ROUTE .STK-MED ONE Stop: 11/07/18 06:13 Ondansetron HCl (Zofran) Confirm Administered Dose 4 mg .ROUTE .STK-MED ONE Stop: 11/07/18 06:13 Ondansetron HCl (Zofran) 4 mg IVPUSH ONETIME PRN PRN Reason: Nausea/Vomiting Stop: 11/07/18 11:00 Oxytocin (Pitocin) Confirm Administered Dose 10 unit .ROUTE .STK-MED ONE Stop: 11/07/18 06:13 Phenylephrine HCl (Phenylephrine In Ns 100 Mcg/Ml) Confirm Administered Dose 1 mg .ROUTE .STK-MED ONE Stop: 11/07/18 08:20 Polyethylene Glycol (Miralax) 34 gm PO ONETIME ONE Stop: 11/08/18 21:01 Last Admin: 11/08/18 20:57 Dose: 34 gm Sodium Chloride (Saline Flush) 10 ml FLUSH ASDIRECTED PRN PRN Reason: Keep Vein Open
[2018-11-09 09:44] VITALS: BP 114/61
== END 2018-11-09 10:45 | disposition home or self-care (01) | DRG 788 ==
LOC: JD.OB 05:20
PROVIDERS: ADMIT Obstetrics & Gynecology; ATTEND Obstetrics & Gynecology
PROC: 10D00Z1 Extraction of Products of Conception, Low, Open Approach (ICD-10-PCS; principal; 2018-11-07)
DX: O34.211 Maternal care for low transverse scar from previous cesarean delivery (principal); N85.8 Other specified noninflammatory disorders of uterus; Z3A.39 39 weeks gestation of pregnancy; Z37.0 Single live birth; O99.62 Diseases of the digestive system complicating childbirth; K58.1 Irritable bowel syndrome with constipation; K21.9 Gastro-esophageal reflux disease without esophagitis; O99.214 Obesity complicating childbirth; E66.9 Obesity, unspecified; O69.81X0 Labor and delivery complicated by cord around neck, without compression, not applicable or unspecified; Z88.8 Allergy status to other drugs, medicaments and biological substances
CPT/HCPCS: 01961; 36415; 59025; 85025; 86592; 86850; 86900; 86901; 94762; A9270-GY; J0690; J1885; J2274; J2370; J2405; J2590; J2765; J3010; J3490; J7050; J7120

== ENCOUNTER 2019-12-15 07:26 | Day surgery (SDC) | payer MEDICAID ==
[2019-12-15] MEDS ORDERED: Scopolamine 1.5 MG Transdermal Patch TOP ONE (08:10)
[2019-12-15] MEDS ORDERED: Lactated Ringers 1,000 ML IV SCH ×2 (08:15)
[2019-12-15] MEDS ORDERED: Lidocaine 1% with EPINEPHrine 1:100,000 20 ML MDV ONE (08:24)
[2019-12-15] MEDS ORDERED: Sodium Chloride 0.9% 50 ML SDV ONE (08:25)
--- NOTE | 2019-12-15 08:32 | PCM.PREANE ---
Preanesthetic Assessment - Procedure Proposed Procedure: Exam under Anesthesia, excision of vaginal cyst - Anesthesia/Transfusion/Family Hx Anesthesia History: Prior Anesthesia Without Reaction Type of Anesthesia Reaction: Excessive Nausea/Vomiting Family History of Anesthesia Reaction: No Transfusion History: No Prior Transfusion(s) Intubation History: Unknown - Review of Systems General: No Symptoms Pulmonary: No Symptoms Cardiovascular: No Symptoms Gastrointestinal: No Symptoms Neurological: No Symptoms (partial scoliosis), Headache (migraines) Other: Reports: Easy Bruising, Depression, Anxiety - Physical Assessment NPO Status Date: 12/14/19 NPO Status Time: 20:00 Vital Signs: Last Vital Signs Temp 36.2 C 12/15/19 07:55 Pulse 118 H 12/15/19 07:55 Resp 16 12/15/19 07:55 BP 116/85 12/15/19 07:55 Pulse Ox 96 12/15/19 07:55 Height: 1.73 m Weight: 140 kg ASA Class: 3 Mental Status: Alert & Oriented x3 Airway Class: Mallampati = 3 Dentition: Reports: Normal Dentition, Caries Thyro-Mental Finger Breadths: 3 Mouth Opening Finger Breadths: 3 ROM/Head Extension: Full Lungs: Clear to Auscultation, Normal Respiratory Effort Cardiovascular: Regular Rate, Regular Rhythm, No Murmurs - Lab Values: Laboratory Last Values WBC 8.47 K/mm3 (3.98-10.04) 12/15/19 07:55 RBC 5.11 M/mm3 (3.98-5.22) 12/15/19 07:55 Hgb 14.6 gm/dl (11.2-15.7) D 12/15/19 07:55 Hct 44.1 % (34.1-44.9) 12/15/19 07:55 MCV 86.3 fl (79.4-94.8) D 12/15/19 07:55 MCH 28.6 pg (25.6-32.2) 12/15/19 07:55 MCHC 33.1 g/dl (32.2-35.5) 12/15/19 07:55 RDW Std Deviation 41.2 fL (36.4-46.3) 12/15/19 07:55 Plt Count 190 K/mm3 (182-369) 12/15/19 07:55 MPV 9.8 fl (9.4-12.3) 12/15/19 07:55 Neut % (Auto) 67.2 % (34.0-71.1) 12/15/19 07:55 Lymph % (Auto) 21.4 % (19.3-51.7) 12/15/19 07:55 Tripp % (Auto) 7.0 % (4.7-12.5) 12/15/19 07:55 Eos % (Auto) 4.0 (0.7-5.8) 12/15/19 07:55 Baso % (Auto) 0.2 % (0.1-1.2) 12/15/19 07:55 Neut # (Auto) 5.69 K/mm3 (1.56-6.13) 12/15/19 07:55 Lymph # (Auto) 1.81 K/mm3 (1.18-3.74) 12/15/19 07:55 Tripp # (Auto) 0.59 K/mm3 (0.24-0.36) H 12/15/19 07:55 Eos # (Auto) 0.34 K/mm3 (0.04-0.36) 12/15/19 07:55 Baso # (Auto) 0.02 K/mm3 (0.01-0.08) 12/15/19 07:55 Urine HCG, Qual Negative (NEGATIVE) 12/15/19 07:42 All labs reviewed and noted and within acceptable ranges to proceed with procedure. - Allergies Allergies/Adverse Reactions: Allergies Allergy/AdvReac Type Severity Reaction Status Date / Time adhesive tape Allergy Rash Verified 12/14/19 13:48 - Anesthesia Plan Pre-Op Medication Ordered: Other (scopalamine patch for PONV) - Acknowledgements Anesthesia Type Planned: MAC Pt an Appropriate Candidate for the Planned Anesthesia: Yes Alternatives and Risks of Anesthesia Discussed w Pt/Guardian: Yes Pt/Guardian Understands and Agrees with Anesthesia Plan: Yes PreAnesthesia Questionnaire - Past Health History Medical/Surgical History: Denies Medical/Surgical History Cardiovascular History: Reports: None, Other (See Below) Other Cardiovascular History: tachycardic when sick Respiratory History: Reports: None Gastrointestinal History: Reports: Diverticulosis, GERD, Irritable Bowel Syndrome Genitourinary History: Reports: None DENTAL ASSOCIATE History: Reports: , Spontaneous , Other (See Below) Other OB/BYN History: miscarriage Musculoskeletal History: Reports: Other (See Below) Other Musculoskeletal History: left foot injury while Neurological History: Reports: None Psychiatric History: Reports: Anxiety, Depression Endocrine/Metabolic History: Reports: Obesity/BMI 30+ Other Endocrine/Metabolic History: prediabetes Hematologic History: Reports: Other (See Below) Other Hematologic History: thrombopenia Oncologic (Cancer) History: Reports: None Dermatologic History: Reports: None - Infectious Disease History Infectious Disease History: Reports: None - Past Surgical History Head Surgeries/Procedures: Reports: None HEENT Surgical History: Reports: Oral Surgery Cardiovascular Surgical History: Reports: None Respiratory Surgical History: Reports: Pleurodesis GI Surgical History: Reports: Colonoscopy Other GI Surgeries/Procedures: 3x Female Surgical History: Reports: Section Other Female Surgeries/Procedures: cyst left ovary Male Surgical History: Reports: None Endocrine Surgical History: Reports: None Neurological Surgical History: Reports: None Musculoskeletal Surgical History: Reports: None Oncologic Surgical History: Reports: None Dermatological Surgical History: Reports: None - History Comment History Comment: tylenol prn, vits - SUBSTANCE USE Smoking Status *Q: Never Smoker Recreational Drug Use History: No - HOME MEDS Home Medications: Home Meds . [No Known Home Meds] 12/14/19 [History] - CURRENT (IN HOUSE) MEDS Current Meds: Current Medications Lactated Ringer's (Ringers, Lactated) 1,000 mls @ 125 mls/hr IV ASDIRECTED [facility] Last Admin: 12/15/19 07:55 Dose: 125 mls/hr Discontinued Medications Lactated Ringer's (Ringers, Lactated) 1,000 mls @ 40 mls/hr IV ASDIRECTED [facility] Scopolamine (Transderm-Scop) 1.5 mg TOP ONETIME ONE Stop: 12/15/19 08:11
[2019-12-15] MEDS ORDERED: Ondansetron 4 MG/2 ML SDV ONE (08:42)
[2019-12-15] MEDS ORDERED: fentaNYL 100 MCG/2 ML SDV ONE (08:42)
[2019-12-15] MEDS ORDERED: Propofol 200 MG/20 ML SDV ONE ×2 (08:42→09:01)
[2019-12-15] MEDS ORDERED: Midazolam 1 MG/ML 2 ML SDV ONE (08:43)
[2019-12-15] MEDS ORDERED: ceFAZolin 1 GM Vial ONE (08:44)
[2019-12-15] MEDS ORDERED: Ketorolac 30 MG/ML SDV ONE (08:46)
[2019-12-15] MEDS ORDERED: Lactated Ringers 1,000 ML ONE (08:57)
[2019-12-15] MEDS ORDERED: Ketorolac 30 MG/ML SDV IVPUSH SCH (09:30)
[2019-12-15] MEDS ORDERED: fentaNYL 100 MCG/2 ML SDV IVPUSH PRN (09:36)
--- NOTE | 2019-12-15 09:36 | PCM.OPNOTE ---
- General Post-Op/Procedure Note Date of Surgery/Procedure: 12/15/19 Operative Procedure(s): Excision of cervical cyst Findings: An ultrasound evaluation clinical evaluation patient is noted to have what appears to be a cyst originating off the anterior surface of the cervix just right of midline. It has a base of approximately 2 cm, a length of 5-1/2 cm and a diameter of approximately 3-1/2 cm. It is fluid filled with what appears to be very fluid mucus. It appears benign in nature. There appears to be no involvement of the bladder, the urethra or the cervical canal. Pre Op Diagnosis: Vaginal cyst Post-Op Diagnosis: Cervical cyst Anesthesia Technique: MAC Other Anesthesia Type: Lidocaine quarter percent with epinephrine approximately 5 mL local Primary Surgeon: Omkar Coppola Secondary Surgeon: Héctor Bah Anesthesia Provider: Rivera Rodriguez Vegetable Inspector: Olaf Engle Reason Vegetable Inspector Was Necessary: Retraction, assistance, patient safety, quantity of care. Pathology: Cervical cyst sac Output, Urine Amount: 20 Drain/Tube Comments:: Red Rubber catheter placed during procedure to identify the urethral canal and drain latter. 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 Local anesthetic is lidocaine quarter percent with epinephrine�Approximately 5 mL injected locally. After adequate analgesia and sedation patient's placed in dorsal lithotomy position. The perineum and vagina were prepped in usual fashion and draped in usual manner. Exam under anesthesia shows structure as described above. It appears to be fluid-filled flaccid cystic structure originating off the anterior surface of the cervix to the right of midline. Shins are as described above. The base of the lesions injected with lidocaine quarter percent with epinephrine �5 mL total. The cyst was then excised at the base in its entirety. Care is taken to remove the whole cyst wall. The area overlying the cyst was then oversewn with approximately 5 running sutures of 0 Monocryl. Estimated blood loss was 35 mL. Uterine sound was placed to insure patency of the endocervical canal. This was confirmed. The catheter was palpated in the urethra and the site of excision was well away from the area of the catheterized urethra and the bladder. After procedure speculum was removed as were the retractors. Patient returned to the supine position. She left the operating room in good condition.
--- NOTE | 2019-12-15 09:50 | PCM48HPAN ---
Post Anesthesia Note - EVALUATION WITHIN 48HRS OF ANESTHETIC Vital Signs in Normal Range: Yes Patient Participated in Evaluation: Yes Respiratory Function Stable: Yes Airway Patent: Yes Cardiovascular Function Stable: Yes Hydration Status Stable: Yes Pain Control Satisfactory: Yes Nausea and Vomiting Control Satisfactory: Yes Mental Status Recovered: Yes Vital Signs: Last Vital Signs Temp 36.2 C 12/15/19 07:55 Pulse 118 H 12/15/19 07:55 Resp 16 12/15/19 07:55 BP 116/85 12/15/19 07:55 Pulse Ox 96 12/15/19 07:55 - COMMENTS/OBSERVATIONS Free Text/Narrative:: no anesthesia complications noted
[2019-12-15 10:48] VITALS: BP 118/75; PULSE 95
== END 2019-12-15 10:20 | disposition home or self-care (01) ==
LOC: JD.SDS 07:26 → EDSTATUS 09:15 → JD.SDS 10:20
PROVIDERS: ATTEND Obstetrics & Gynecology
DX: N88.8 Other specified noninflammatory disorders of cervix uteri (principal); F32.9 Major depressive disorder, single episode, unspecified; F41.9 Anxiety disorder, unspecified; E66.9 Obesity, unspecified; Z68.42 Body mass index [BMI] 45.0-49.9, adult; Z91.048 Other nonmedicinal substance allergy status
CPT/HCPCS: 36415; 57500; 81003; 81025; 85025; A9270; J0690; J1885; J2250; J2405; J2704; J3010; J7120; 00940

== ENCOUNTER 2024-06-30 17:06 | Emergency (ER) | payer MEDICAID ==
[2024-06-30 18:02] LABS: BASOPHILS PERCENT AUTO 0.1 % (0.0-1.0); EOSINOPHILS ABSOLUTE AUTO 0.2 K/mm3 (0.0-0.4); EOSINOPHILS PERCENT AUTO 2.2 % (0.0-6.0); HEMATOCRIT 44.4 % (37.0-47.0); HEMOGLOBIN 15.1 gm/dl (12.0-16.0); IMMATURE GRAN ABSOLUTE AUTO 0.03 K/mm3 (0.00-0.05); IMMATURE GRAN PERCENT AUTO 0.3 % (0.0-0.4); LYMPHOCYTES ABSOLUTE AUTO 0.4 K/mm3 (1.0-4.8); LYMPHOCYTES PERCENT AUTO 4.5 % (24.0-44.0); MEAN CORPUSCULAR HEMOGLOBIN 28.9 pg (28.0-32.0); MEAN CORPUSCULAR VOLUME 84.9 fl (83.0-99.0); MEAN PLATELET VOLUME 9.5 fl (9.4-12.3); MONOCYTES ABSOLUTE AUTO 0.4 K/mm3 (0.0-0.8); MONOCYTES PERCENT AUTO 4.2 % (0.0-8.0); NEUTROPHILS PERCENT AUTO 88.7 % (41.0-71.0); PLATELET COUNT,PLT 176 K/mm3 (150-400); RED BLOOD CELL COUNT 5.23 M/mm3 (4.10-5.30); WHITE BLOOD CELL COUNT,WBC 9.04 K/mm3 (3.9-11.3)
[2024-06-30 18:24] LABS: ALBUMIN 3.6 g/dl (3.4-5.0); ANION GAP 12.6 (5-15); BILIRUBIN TOTAL 0.9 mg/dL (0.2-1.0); C-REACTIVE PROTEIN 1.77 mg/dL (<0.30); EST CRCL DRUG DOSING (CG) 77.81 mL/min; POTASSIUM,K 3.6 mEq/L (3.5-5.1); PROTEIN TOTAL,TP 7.4 g/dl (6.4-8.2)
[2024-06-30] MEDS: Ondansetron 4 MG/2 ML SDV IVPUSH ONE (19:06)
[2024-06-30] MEDS: Sodium Chloride 0.9% 1,000 ML IV STA (19:08)
[2024-06-30] MEDS: Sodium Chloride 0.9% 10 ML Syringe FLUSH PRN (19:08)
[2024-06-30] MEDS: Ketorolac 30 MG/ML SDV IVPUSH ONE (20:04)
[2024-06-30] MEDS: Dicyclomine 10 MG Cap PO ONE (20:04)
[2024-06-30 20:57] VITALS: BP 108/67; PULSE 80
== END 2024-06-30 20:58 | disposition home or self-care (01) ==
LOC: JD.ED 17:06
DX: K52.9 Noninfective gastroenteritis and colitis, unspecified (principal); E66.9 Obesity, unspecified; Z68.42 Body mass index [BMI] 45.0-49.9, adult; Z91.048 Other nonmedicinal substance allergy status
CPT/HCPCS: 36415; 74177; 74177-26; 80053; 84703; 85025; 86140; 96361; 96374; 96375; 99285-25; A9270-GY; J1885; J2405; J3490; J7030